=== PATIENT | female | born 1975 | race African-American/Black ===

== ENCOUNTER 2017-01-29 06:42 | Day surgery (SDC) | payer BC ==
[~2017-01-29] VITALS: Ht 165.1 cm; Wt 112.3 kg
[2017-01-29] VITALS (7 sets, daily range): BP systolic 119–182; BP diastolic 56–102; PULSE 62–91; RESP 16–20; TEMP 96.8–98.8; O2SAT 98–99
[~2017-01-29 06:42] MED LIST: ACET325S8 PO; FOLI1 PO; LISI-360 PO; MAXZ PO; ZITH250T PO
[2017-01-29] MEDS ORDERED: FOLI400T PO (07:14)
[2017-01-29] MEDS ORDERED: LISI-515 PO (07:14)
[2017-01-29] MEDS ORDERED: FLUT50SP EACH NARE (07:14)
[2017-01-29] MEDS ORDERED: TRIA37.5 PO (07:14)
[2017-01-29] MEDS ORDERED: LIFI1DRO EACH EYE (07:14)
[2017-01-29] MEDS ORDERED: LIDOCAINE HCL 1% 20 ML VIAL ONE (07:57)
[2017-01-29] MEDS ORDERED: SODIUM CHLOR 0.9% 1000 ML IV SCH (08:00)
[2017-01-29] MEDS ORDERED: fentaNYL CITRATE 250 MCG/5 ML AMP ONE (08:19)
[2017-01-29] MEDS ORDERED: MIDAZOLAM HCL 5 MG/5 ML VIAL ONE (08:19)
--- NOTE | 2017-01-29 09:04 | PD.RAD ---
Post CT Procedure Prog Note Pre Procedure Diagnosis: (1) Nephrotic syndrome (2) Nephrotic range proteinuria Post Procedure Diagnosis: (1) Nephrotic range proteinuria (2) Nephrotic syndrome Procedure Date: Jan 29, 2017 Supervising Radiologist: Sage Sol Anesthesia: Local, Conscious Sedation Plan of Activity Patient to Unit: ROPU Patient Condition: Good Additional Comments: Pt. post left renal biopsy. 2 samples taken with an 18 gauge needle No significant post op hemorrhage See PACS Report for procedural detail/treatment Sage Sol MD Jan 29, 2017 09:04
[2017-01-29 10:30] LABS: AUTOMATED NEUTROPHIL # 5.5 TH/MM3 (1.8-7.7); BASOPHIL # 0.1 TH/MM3 (0-0.2); BASOPHIL % 0.7 % (0.0-2.0); EOSINOPHIL # 0.2 TH/MM3 (0-0.4); HEMATOCRIT 31.9 % (35.0-46.0); HEMO FLAGS DIFF FINAL; LYMPH % 18.1 % (9.0-44.0); LYMPHOCYTE # 1.4 TH/MM3 (1.0-4.8); MEAN CELL VOLUME 80.4 FL (80.0-100.0); MEAN CORPUSCULAR HEMOGLOBIN 25.2 PG (27.0-34.0); MEAN CORPUSCULAR HGB CONC 31.4 % (32.0-36.0); MONO % 5.9 % (0.0-8.0); NEUT % 72.3 % (16.0-70.0); PLATELET COUNT 377 TH/MM3 (150-450); RED BLOOD COUNT 3.97 MIL/MM3 (4.00-5.30); RED CELL DISTRIBUTION WIDTH 16.4 % (11.6-17.2); WHITE BLOOD COUNT 7.7 TH/MM3 (4.0-11.0)
--- NOTE | 2017-01-29 10:45 | RADRPT ---
EXAM DATE/TIME: 01/29/2017 08:35 [facility] COMPARISON: CT SOFT TISSUE NECK W CONTRAST, November 17, 2013, 15:57. INDICATIONS : Nephrotic range proteinuria; Chronic renal failure. SEDATION TIME: 30 minutes BIOPSY SITE: MEDICATION(S): 1.) 1.5 mg midazolam (Versed) IV 2.) 75 mcg fentanyl (Sublimaze) IV DEVICE(S): 1.) 18 gauge Temno core biopsy needle MEDICAL HISTORY : Chronic kidney failure. SURGICAL HISTORY : None. ENCOUNTER: Initial ACUITY: 1 day PAIN SCORE: 0/10 LOCATION: Left kidney A total of two core specimen(s) were obtained and sent to the laboratory for pathologic evaluation. PROCEDURE: 1. CT guided renalleft biopsy. 2. Conscious sedation with continuous EKG and oximetry monitoring. 3. EKG and oximetry remained stable throughout the procedure. Prior to the procedure informed consent was obtained. Any appropriate prior imaging studies were rev iewed. Using automated exposure control and adjustment of the mA and/or kV according to patient size, radiat ion dose was kept as low as reasonably achievable to obtain optimal diagnostic quality images. The site was prepped in a sterile fashion. Full sterile technique was used, including cap, mask, anish rile gloves and gown and a large sterile sheet. Hand hygiene and 2% chlorhexidine and/or betadine/al cohol prep was utilized per protocol for cutaneous antisepsis. The skin and subcutaneous tissues wer e infiltrated with local anesthetic solution. With CT guidance the previously identified target was localized. Biopsy was performed using an 18 gau ge core biopsy needle. The initial biopsy sample was evaluated with a magnifying glass. There are onl y a few glomeruli identified. A second biopsy was performed. Adequate hemostasis was obtained with co mpression at the puncture site. Follow-up CT scan reveals no hemorrhage. The patient tolerated the procedure well and there were no complications. The patient was returned to the Radiology Outpatient Unit in stable condition. CONCLUSION: Uncomplicated CT guided biopsy of the left kidney for renal function. 2 biopsies were performed.. Sage Sol MD on January 29, 2017 at 10:42 Board Certified Radiologist. This report was verified electronically.
[2017-01-29 12:05] LABS: AUTOMATED NEUTROPHIL # 5.6 TH/MM3 (1.8-7.7); BASOPHIL # 0.1 TH/MM3 (0-0.2); BASOPHIL % 0.8 % (0.0-2.0); EOSINOPHIL # 0.2 TH/MM3 (0-0.4); EOSINOPHIL % 2.3 % (0.0-4.0); HEMO FLAGS DIFF FINAL; LYMPH % 19.2 % (9.0-44.0); LYMPHOCYTE # 1.5 TH/MM3 (1.0-4.8); MEAN CELL VOLUME 79.3 FL (80.0-100.0); MEAN CORPUSCULAR HEMOGLOBIN 25.3 PG (27.0-34.0); MEAN CORPUSCULAR HGB CONC 31.9 % (32.0-36.0); MONO % 7.4 % (0.0-8.0); NEUT % 70.3 % (16.0-70.0); PLATELET COUNT 351 TH/MM3 (150-450); RED BLOOD COUNT 3.91 MIL/MM3 (4.00-5.30); RED CELL DISTRIBUTION WIDTH 16.4 % (11.6-17.2)
== END 2017-01-29 15:15 | disposition home or self-care (01) ==
LOC: HRAD 06:42 → HRIP 06:46 → HRAD 15:15
PROVIDERS: ATTEND Internal Medicine Nephrology
DX: N05.8 Unspecified nephritic syndrome with other morphologic changes (principal)
CPT/HCPCS: 50200; 77012; 85025; J2250; J3010; J7030

== ENCOUNTER 2017-04-24 08:06 | Emergency (ER) | payer BC ==
[~2017-04-24] VITALS: Ht 165.1 cm; Wt 117.6 kg
[~2017-04-24 08:06] MED LIST changes: -ACET325S8 PO; +FLUT50SP EACH NARE; -FOLI1 PO; +FOLI400T PO; +LIFI1DRO EACH EYE; -LISI-360 PO; +LISI-515 PO; -MAXZ PO; +TRIA37.5 PO; -ZITH250T PO
[2017-04-24 08:11] VITALS: BP 198/93; PULSE 93; RESP 16; TEMP 98.5; O2SAT 98
--- NOTE | 2017-04-24 08:34 | PD ---
HPI Chief Complaint: Headache Time Seen by Provider: 08:21 Travel History International Travel<30 days: No Contact w/Intl Traveler<30days: No Traveled to known affect area: No History of Present Illness HPI 42 y/o female presents with frontal pressure to her head that is been going on over the past couple days. She states over the past week or so she's been having adjustment of her blood pressure medication. First her document review attorney Dr. Leigh increased her lisinopril from 20-40. She states then last week she followed with her primary who added in 5 mg of Norvasc. She states that she took her blood pressure medicine at 745 shortly prior to arrival but given her pressure was elevated with feeling of head pressure and her head she elected to come here. She denies any chest pain, shortness breath, fever, numbness, weakness or other concurrent complaints. PFSH Past Medical History Anemia: Yes Cancer: No Cardiovascular Problems: Yes (htn on meds) Diabetes: No Diminished Hearing: No Endocrine: No Gastrointestinal Disorders: No Genitourinary: No Hepatitis: No Hiatal Hernia: No Hypertension: Yes Immune Disorder: No Medical other: No Musculoskeletal: No Neurologic: No Psychiatric: No Reproductive: Yes Respiratory: No Integumentary: Yes (GENITAL HERPES) Immunizations Current: No Renal Failure: Yes (lupus related kidney disease) Thyroid Disease: No ?: Not Menopausal: Yes : 2 Para: 1 Miscarriage: 1 Past Surgical History Abdominal Surgery: No AICD: No Cardiac Surgery: No Section: Yes Ear Surgery: No Endocrine Surgery: No Eye Surgery: No Genitourinary Surgery: No Gynecologic Surgery: Yes Joint Replacement: No Oral Surgery: No Pacemaker: No Thoracic Surgery: No Other Surgery: Yes (c section) Social History Alcohol Use: No Tobacco Use: No Substance Use: No Allergies-Medications (Allergen,Severity, Reaction): Coded Allergies: doxycycline (Unverified Allergy, Mild, Rash, 04/24/17) Reported Meds & Prescriptions Reported Meds & Active Scripts Active Reported Calcium 600 with Vitamin D (Calcium Carbonate-Cholecalciferol) 600-400 mg-Unit Tab 1 Tab PO DAILY Furosemide 20 Mg Tab 20 Mg PO -- Vitamin D2 (Ergocalciferol) 2,000 Unit Tab 100,000 Units PO WEEKLY Potassium Chloride ER (Potassium Chloride) 20 Meq Tab 20 Meq PO -- Bactrim DS (Sulfamethoxazole-Trimethoprim) 800-160 Mg Tab 1 Tab PO -- Prednisone 10 Mg Tab 10 Mg PO DAILY Mycophenolate (Mycophenolate Mofetil) 500 Mg Tab 1,500 Mg PO BID Omeprazole 20 Mg Tab 20 Mg PO DAILY Xiidra Opth Drops (Lifitegrast Opth Drops) 5% Drops 1 Drop EACH EYE BID Fluticasone Nasal [place] 50 Mcg/Act Naspr 100 Mcg EACH NARE DAILY 50 mcg/spray Triamterene-Hydrochlorothiazide 37.5-25 Mg Tab 1 Tab PO DAILY Lisinopril 20 Mg Tab 40 Mg PO DAILY Review of Systems Except as stated in HPI: all other systems reviewed are Neg Physical Exam Narrative GENERAL: Well-nourished, well-developed patient. SKIN: Warm and dry. HEAD: Normocephalic and atraumatic. EYES: No injection or drainage. ENT: No nasal drainage noted. NECK: Supple, trachea midline. No meningeal signs CARDIOVASCULAR: Regular rate and rhythm RESPIRATORY: No increased effort. No accessory muscle use. GASTROINTESTINAL: Abdomen soft, non-tender, nondistended. EXTREMITIES: No edema. NEUROLOGICAL: Awake and alert. Motor and sensory grossly within normal limits. Normal speech. Data Data Last Documented VS Vital Signs Date Time Temp Pulse Resp B/P (MAP) Pulse Ox O2 Delivery O2 Flow Rate FiO2 04/24/17 09:44 81 16 165/75 (105) 98 Room Air 04/24/17 08:11 98.5 Orders Orders Complete Blood Count With Diff (04/24/17 08:26) Basic Metabolic Panel (Bmp) (04/24/17 08:26) Act Partial Throm Time (Ptt) (04/24/17 08:26) Prothrombin Time / Inr (Pt) (04/24/17 08:26) Ct Brain W/O Iv Contrast(Rout) (04/24/17 ) Iv Access Insert/Monitor (04/24/17 08:26) Ecg Monitoring (04/24/17 08:26) Oximetry (04/24/17 08:26) Urinalysis - C+S If Indicated (04/24/17 08:26) Chest, Pa & Lat (04/24/17 ) Labs Laboratory Tests Test 04/24/17 08:41 04/24/17 09:01 Urine Collection Type CLEAN CATCH Urine Color YELLOW Urine Turbidity CLEAR Urine pH 5.5 Urine Specific [place] 1.016 Urine Protein 300 OR GREATER mg/dL Urine Glucose (UA) NEG mg/dL Urine Ketones NEG mg/dL Urine Occult Blood SMALL Urine Nitrite NEG Urine Bilirubin NEG Urine Leukocyte Esterase NEG Urine RBC 4-9 /hpf Urine WBC 0-2 /hpf Urine Squamous Epithelial Cells 6-8 /hpf Microscopic Urinalysis Comment CULT NOT INDICATED Urine Collection Time 08:41 White Blood Count 13.7 TH/MM3 Red Blood Count 3.92 MIL/MM3 Hemoglobin 10.0 GM/DL Hematocrit 32.1 % Mean Corpuscular Volume 81.7 FL Mean Corpuscular Hemoglobin 25.6 PG Mean Corpuscular Hemoglobin Concent 31.3 % Red Cell Distribution Width 17.5 % Platelet Count 391 TH/MM3 Mean Platelet Volume 7.4 FL Neutrophils (%) (Auto) 78.1 % Lymphocytes (%) (Auto) 15.1 % Monocytes (%) (Auto) 5.2 % Eosinophils (%) (Auto) 1.3 % Basophils (%) (Auto) 0.3 % Neutrophils # (Auto) 10.7 TH/MM3 Lymphocytes # (Auto) 2.1 TH/MM3 Monocytes # (Auto) 0.7 TH/MM3 Eosinophils # (Auto) 0.2 TH/MM3 Basophils # (Auto) 0.0 TH/MM3 CBC Comment DIFF FINAL Differential Comment Prothrombin Time 10.5 SEC Prothromb Time International Ratio 1.0 RATIO Activated Partial Thromboplast Time 25.4 SEC Blood Urea Nitrogen 23 MG/DL Creatinine 1.20 MG/DL Random Glucose 97 MG/DL Calcium Level 8.4 MG/DL Sodium Level 140 MEQ/L Potassium Level 3.5 MEQ/L Chloride Level 106 MEQ/L Carbon Dioxide Level 27.7 MEQ/L Anion Gap 6 MEQ/L Estimat Glomerular Filtration Rate 60 ML/MIN MDM Medical Decision Making Medical Screen Exam Complete: Yes Emergency Medical Condition: Yes Medical Record Reviewed: Yes (past history confirmed) Interpretation(s) CBC & BMP Diagram 04/24/17 09:01 Calcium Level 8.4 L Last [address] 04/24/17 0000 Signed Impressions: Service Date/Time: Monday, April 24, 2017 08:42 - CONCLUSION: Normal examination. No significant change has occurred. Justin May MD Chest X-Ray 04/24/17 0000 Signed Impressions: Service Date/Time: Monday, April 24, 2017 09:32 - CONCLUSION: No acute disease. Piotr Lu MD Differential Diagnosis Worsening renal failure, tension, migraine, bleed, hypertensive urgency..... Narrative Course Will check blood work, urinalysis, CT scan abdominal pelvis and monitor. Patient took blood pressure medication shortly prior to arrival. We'll recheck and see if she needs further blood pressure control Renal function is at baseline, CT brain no acute, pressure has come down nicely on its own, patient has minimal elevated white count will add on chest x-ray Chest x-ray shows no acute findings,Patient denies any new complaints and states that they are feeling better. Patient happy with care, all questions answered. Patient knows that follow up is incumbent on them and to return to the emergency room immediately if new or worsening symptoms develop. Patient given strict return precautions, vitals reviewed and are normal, agrees to further workup as an outpatient. Diagnosis Primary Impression: Cephalalgia Qualified Codes: R51 - Headache Patient Instructions: General Instructions Additional Instructions: keep blood pressure log, return as needed, follow with primary this week Med/Other Pt SpecificInfo: No Change to Meds Disposition: 01 DISCHARGE HOME Condition: Stable Ashlie De Santiago MD Apr 24, 2017 08:33
[2017-04-24] MEDS ORDERED: POTA-163 PO (08:35)
[2017-04-24] MEDS ORDERED: PRED10 PO (08:35)
[2017-04-24] MEDS ORDERED: MYCO500T PO (08:35)
[2017-04-24] MEDS ORDERED: ERGO2000 PO (08:35)
[2017-04-24] MEDS ORDERED: FOLI400T PO (08:35)
[2017-04-24] MEDS ORDERED: FURO20TA PO (08:35)
[2017-04-24] MEDS ORDERED: OMEP20TA PO (08:35)
[2017-04-24] MEDS ORDERED: CALC1TAB87 PO (08:35)
[2017-04-24] MEDS ORDERED: BACT800T5 PO (08:35)
[2017-04-24 08:44] LABS: BLOOD, URINE SMALL (NEG); GLUCOSE,URINE NEG (NEG); KETONE, URINE NEG (NEG); NITRITE,URINE NEG (NEG); PH, URINE 5.5 (5.0-8.5)
[2017-04-24 08:50] LABS: METHOD OF COLLECTION CLEAN CATCH; URINE COLOR YELLOW (YELLW/STRAW); WBC, URINE 0-2 /hpf (0-5)
[2017-04-24 08:51] LABS: COMMENT (UR) CULT NOT INDICATED; CULTURE IF INDICATED CULT NOT INDICATED
--- NOTE | 2017-04-24 08:52 | RADRPT ---
EXAM DATE/TIME: 04/24/2017 08:42 [facility] COMPARISON: CT BRAIN W/O CONTRAST, October 14, 2009, 22:07. INDICATIONS : Headache and hypertension. RADIATION DOSE: 59.22 CTDIvol (mGy) MEDICAL HISTORY : Hypertension. SURGICAL HISTORY : section. ENCOUNTER: Initial ACUITY: 1 day PAIN SCALE: 5/10 LOCATION: cranial TECHNIQUE: Multiple contiguous axial images were obtained of the head. Using automated exposure control and adj ustment of the mA and/or kV according to patient size, radiation dose was kept as low as reasonably a chievable to obtain optimal diagnostic quality images. DICOM format image data is available electro nically for review and comparison. FINDINGS: CEREBRUM: The ventricles are normal for age. No evidence of midline shift, mass lesion, hemorrhage or acute in farction. No extra-axial fluid collections are seen. POSTERIOR FOSSA: The cerebellum and brainstem are intact. The 4th ventricle is midline. The cerebellopontine angle i s unremarkable. EXTRACRANIAL: The visualized portion of the orbits is intact. SKULL: The calvaria is intact. No evidence of skull fracture. CONCLUSION: Normal examination. No significant change has occurred. Justin May MD on April 24, 2017 at 8:48 Board Certified Radiologist. This report was verified electronically.
[2017-04-24 09:05] LABS: AUTOMATED NEUTROPHIL # 10.7 TH/MM3 (1.8-7.7); BASOPHIL % 0.3 % (0.0-2.0); EOSINOPHIL # 0.2 TH/MM3 (0-0.4); EOSINOPHIL % 1.3 % (0.0-4.0); HEMATOCRIT 32.1 % (35.0-46.0); LYMPH % 15.1 % (9.0-44.0); LYMPHOCYTE # 2.1 TH/MM3 (1.0-4.8); MEAN CELL VOLUME 81.7 FL (80.0-100.0); MEAN CORPUSCULAR HEMOGLOBIN 25.6 PG (27.0-34.0); MEAN CORPUSCULAR HGB CONC 31.3 % (32.0-36.0); MONO % 5.2 % (0.0-8.0); NEUT % 78.1 % (16.0-70.0); PLATELET COUNT 391 TH/MM3 (150-450); RED BLOOD COUNT 3.92 MIL/MM3 (4.00-5.30); RED CELL DISTRIBUTION WIDTH 17.5 % (11.6-17.2); WHITE BLOOD COUNT 13.7 TH/MM3 (4.0-11.0)
[2017-04-24 09:06] LABS: HEMO FLAGS DIFF FINAL
[2017-04-24 09:14] LABS: POTASSIUM 3.5 MEQ/L (3.5-5.1)
[2017-04-24 09:16] LABS: BICARBONATE 27.7 MEQ/L (21.0-32.0)
[2017-04-24 09:18] LABS: APTT (PATIENT) 25.4 SEC (24.3-30.1); PROTHROMBIN TIME - PATIENT 10.5 SEC (9.8-11.6)
[2017-04-24 09:42] VITALS: O2SAT 98
[2017-04-24 09:44] VITALS: BP 165/75; PULSE 81; RESP 16; O2SAT 98
--- NOTE | 2017-04-24 09:55 | RADRPT ---
EXAM DATE/TIME: 04/24/2017 09:32 [facility] COMPARISON: CHEST SINGLE AP, June 11, 2016, 18:14. INDICATIONS : Headache,high blood pressure, palpatations possibly due to medication changes. MEDICAL HISTORY : Hypertension. Lupus. Lupus related renal disease. Anemia. SURGICAL HISTORY : section. ENCOUNTER: Initial ACUITY: 1 day PAIN SCORE: 0/10 LOCATION: chest FINDINGS: PA and lateral views of the chest demonstrate the lungs to be symmetrically aerated without evidence of mass, infiltrate or effusion. The cardiomediastinal contours are unremarkable. Osseous structure s are intact. CONCLUSION: No acute disease. Piotr Lu MD on April 24, 2017 at 9:53 Board Certified Radiologist. This report was verified electronically.
== END 2017-04-24 10:19 | disposition home or self-care (01) ==
LOC: PHED 08:06
DX: R51 Headache (principal); I10 Essential (primary) hypertension; M32.9 Systemic lupus erythematosus, unspecified
CPT/HCPCS: 70450; 71020; 80048; 81001; 85025; 85610; 85730; 99285

== ENCOUNTER 2017-10-20 17:31 | Emergency (ER) | payer BC ==
[~2017-10-20 17:31] MED LIST changes: +BACT800T5 PO; +CALC1TAB87 PO; +ERGO2000 PO; +FURO20TA PO; +MYCO500T PO; +OMEP20TA93 PO; +POTA-163 PO; +PRED10 PO
[2017-10-20 17:35] VITALS: BP 171/94; PULSE 100; RESP 18; TEMP 101.4; O2SAT 98
[2017-10-20] MEDS ORDERED: AMLO5 PO (17:49)
[2017-10-20 17:51] VITALS: BP 151/61; PULSE 93; RESP 20; TEMP 99.8; O2SAT 97
[2017-10-20] MEDS ORDERED: SODIUM CHLORIDE 0.9% FLUSH 10 ML FLUSH IVF PRN (18:15)
[2017-10-20] MEDS ORDERED: ACETAMINOPHEN 325 MG TAB PO ONE (18:15)
[2017-10-20] MEDS ORDERED: SODIUM CHLOR 0.9% 1000 ML INJ 1,000 ML IV ONE (18:15)
--- NOTE | 2017-10-20 18:27 | RADRPT ---
EXAM DATE/TIME: 10/20/2017 18:10 [facility] COMPARISON: CHEST PA & LAT, April 24, 2017, 9:32. INDICATIONS : Fever, cold, and flu symptoms. MEDICAL HISTORY : Hypertension. Lupus. Lupus related renal disease. Anemia. SURGICAL HISTORY : section. ENCOUNTER: Initial ACUITY: 2 days PAIN SCORE: 0/10 LOCATION: Bilateral chest FINDINGS: PA and lateral views of the chest demonstrate the lungs to be symmetrically aerated without evidence of mass, infiltrate or effusion. The heart size is enlarged but stable.. Osseous structures are int act. CONCLUSION: No acute disease. No significant change has occurred. Russell Hernandez MD on October 20, 2017 at 18:26 Board Certified Radiologist. This report was verified electronically.
[2017-10-20 19:17] LABS: CALCIUM 8.4 MG/DL (8.5-10.1)
[2017-10-20 19:18] LABS: BICARBONATE 29.9 MEQ/L (21.0-32.0)
[2017-10-20 19:21] LABS: AUTOMATED NEUTROPHIL # 7.6 TH/MM3 (1.8-7.7); BASOPHIL % 0.1 % (0.0-2.0); CREATININE 1.1 MG/DL (0.50-1.00); EOSINOPHIL # 0.1 TH/MM3 (0-0.4); HEMATOCRIT 32.3 % (35.0-46.0); HEMOGLOBIN 10.4 GM/DL (11.6-15.3); LYMPH % 8.9 % (9.0-44.0); LYMPHOCYTE # 0.8 TH/MM3 (1.0-4.8); MEAN CELL VOLUME 85.8 FL (80.0-100.0); MEAN CORPUSCULAR HEMOGLOBIN 27.5 PG (27.0-34.0); MEAN CORPUSCULAR HGB CONC 32.1 % (32.0-36.0); MONO % 5.6 % (0.0-8.0); MONOCYTE # 0.5 TH/MM3 (0-0.9); NEUT % 84.4 % (16.0-70.0); PLATELET COUNT 334 TH/MM3 (150-450); RED BLOOD COUNT 3.76 MIL/MM3 (4.00-5.30); RED CELL DISTRIBUTION WIDTH 16.2 % (11.6-17.2)
[2017-10-20 19:34] VITALS: BP 168/78; PULSE 88; RESP 18; TEMP 99.4; O2SAT 98
[2017-10-20] MEDS ORDERED: OSEL75 PO (19:35)
--- NOTE | 2017-10-20 19:35 | PD ---
HPI . Flulike symptoms Chief Complaint: Cold / Flu Symptoms Time Seen by Provider: 17:52 Travel History International Travel<30 days: No Contact w/Intl Traveler<30days: No Traveled to known affect area: No History of Present Illness HPI This patient presents with the acute onset of flulike symptoms. Onset was yesterday. Symptoms include sore throat, cough, subjective fevers and chills, myalgias. She did not get a flu shot this year. She has not taken an antipyretic today. 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 She states that she is concerned because of a history of SLE. PFSH Past Medical History Anemia: Yes Arthritis: Yes (RA) Cancer: No Cardiovascular Problems: Yes (htn on meds) Diabetes: No Diminished Hearing: No Endocrine: No Gastrointestinal Disorders: No Genitourinary: No Hepatitis: No Hiatal Hernia: No Hypertension: Yes Immune Disorder: No Medical other: Yes (LUPUS SJORGENS) Musculoskeletal: No Neurologic: No Psychiatric: No Reproductive: Yes Respiratory: No Integumentary: Yes (GENITAL HERPES) Immunizations Current: No Renal Failure: Yes (lupus related kidney disease) Thyroid Disease: No Tetanus Vaccination: > 5 Years Influenza Vaccination: No ?: Not LMP: 2 WEEKS AGO Menopausal: Yes : 2 Para: 1 Miscarriage: 1 Past Surgical History Abdominal Surgery: No AICD: No Cardiac Surgery: No Section: Yes Ear Surgery: No Endocrine Surgery: No Eye Surgery: No Genitourinary Surgery: No Gynecologic Surgery: Yes Joint Replacement: No Oral Surgery: No Pacemaker: No Thoracic Surgery: No Other Surgery: Yes (c section) Social History Alcohol Use: No Tobacco Use: No Substance Use: No Allergies-Medications (Allergen,Severity, Reaction): Coded Allergies: doxycycline (Unverified Allergy, Mild, Rash, 10/20/17) Reported Meds & Prescriptions Reported Meds & Active Scripts Active Reported Norvasc (Amlodipine Besylate) 5 Mg Tab 5 Mg PO DAILY Folic Acid 0.4 Mg Tab 1 Mg PO DAILY Furosemide 20 Mg Tab 20 Mg PO - Vitamin D2 (Ergocalciferol) 2,000 Unit Tab 100,000 Units PO 2 TXS WEEKLY Potassium Chloride ER (Potassium Chloride) 20 Meq Tab 20 Meq PO Bactrim DS (Sulfamethoxazole-Trimethoprim) 800-160 Mg Tab 1 Tab PO -- Prednisone 10 Mg Tab 7.5 Mg PO DAILY Mycophenolate (Mycophenolate Mofetil) 500 Mg Tab 1,500 Mg PO BID Omeprazole 20 Mg Tab 20 Mg PO DAILY Fluticasone Nasal [place] 50 Mcg/Act Naspr 100 Mcg EACH NARE DAILY 50 mcg/spray Triamterene-Hydrochlorothiazide 37.5-25 Mg Tab 1 Tab PO DAILY Lisinopril 20 Mg Tab 40 Mg PO DAILY Review of Systems Except as stated in HPI: all other systems reviewed are Neg General / Constitutional: Positive: Fever, Chills HENT: Positive: Sore Throat Respiratory: Positive: Cough Musculoskeletal: Positive: Myalgias Physical Exam Narrative GENERAL: Awake and alert and in no acute distress. SKIN: Warm and dry. HEAD: Normocephalic/atraumatic. EYES: Pupils are equal. Extraocular movements are intact. ENT: Oropharynx has no erythema, tonsillar enlargement, exudate. NECK: Normal range of motion. Supple with no cervical adenopathy. CARDIOVASCULAR: Regular rate and rhythm. Heart sounds are normal. RESPIRATORY: Nonlabored respirations. Lungs are clear with full air movement throughout. MUSCULOSKELETAL: Atraumatic. NEUROLOGICAL: Nonfocal. PSYCHIATRIC: Appropriate mood and affect. Data Data Last Documented VS Vital Signs Date Time Temp Pulse Resp B/P (MAP) Pulse Ox O2 Delivery O2 Flow Rate FiO2 10/20/17 17:51 99.8 93 20 151/61 (91) 97 Room Air Orders Orders Basic Metabolic Panel (Bmp) (10/20/17 18:03) Complete Blood Count With Diff (10/20/17 18:03) Lactic Acid Sepsis Protocol (10/20/17 18:03) Influenzae A/B Antigen (10/20/17 18:03) Blood Culture (10/20/17 18:03) Chest, Pa & Lat (10/20/17 18:03) Iv Access Insert/Monitor (10/20/17 18:03) Sodium Chloride 0.9% Flush (Ns Flush) (10/20/17 18:15) Acetaminophen (Tylenol) (10/20/17 18:15) Sodium Chlor 0.9% 1000 Ml Inj (Ns 1000 M (10/20/17 18:15) Labs Laboratory Tests Test 10/20/17 18:55 White Blood Count 9.0 TH/MM3 Red Blood Count 3.76 MIL/MM3 Hemoglobin 10.4 GM/DL Hematocrit 32.3 % Mean Corpuscular Volume 85.8 FL Mean Corpuscular Hemoglobin 27.5 PG Mean Corpuscular Hemoglobin Concent 32.1 % Red Cell Distribution Width 16.2 % Platelet Count 334 TH/MM3 Mean Platelet Volume 8.0 FL Neutrophils (%) (Auto) 84.4 % Lymphocytes (%) (Auto) 8.9 % Monocytes (%) (Auto) 5.6 % Eosinophils (%) (Auto) 1.0 % Basophils (%) (Auto) 0.1 % Neutrophils # (Auto) 7.6 TH/MM3 Lymphocytes # (Auto) 0.8 TH/MM3 Monocytes # (Auto) 0.5 TH/MM3 Eosinophils # (Auto) 0.1 TH/MM3 Basophils # (Auto) 0.0 TH/MM3 CBC Comment DIFF FINAL Differential Comment Blood Urea Nitrogen 22 MG/DL Creatinine 1.10 MG/DL Random Glucose 93 MG/DL Calcium Level 8.4 MG/DL Sodium Level 142 MEQ/L Potassium Level 4.3 MEQ/L Chloride Level 107 MEQ/L Carbon Dioxide Level 29.9 MEQ/L Anion Gap 5 MEQ/L Estimat Glomerular Filtration Rate 66 ML/MIN Lactic Acid Level 0.9 mmol/L MDM Medical Decision Making Medical Screen Exam Complete: Yes Emergency Medical Condition: Yes Differential Diagnosis Differential diagnosis of fever includes but is not limited to viral illness, strep throat, otitis media, pneumonia, sepsis, UTI Narrative Course This patient presents with the chief complaint of fever and flulike symptoms. She states that she is on immunosuppressive medications because of SLE. Therefore, she is concerned about her fever. Last Impressions Chest X-Ray 10/20/17 180 Signed Impressions: Service Date/Time: Friday, October 20, 2017 18:10 - CONCLUSION: No acute disease. No significant change has occurred. Russell Hernandez MD The chest x-ray was independently viewed by me. CBC & BMP Diagram 10/20/17 18:55 Calcium Level 8.4 L LA 0.9 Flu +. I will discharge her with a prescription for Tamiflu. Diagnosis Primary Impression: Influenza Patient Instructions: General Instructions, Influenza (DC) Med/Other Pt SpecificInfo: Prescription(s) given Scripts Oseltamivir (Tamiflu) 75 Mg Cap 75 MG PO BID for Mgmt Viral Infection for 5 Days, #10 CAP 0 Refills Prov: Heide Muñoz MD 10/20/17 Disposition: 01 DISCHARGE HOME Condition: Stable Heide Muñoz MD Oct 20, 2017 19:35
[2017-10-20 19:57] VITALS: BP 168/76; PULSE 91; RESP 20; O2SAT 97
== END 2017-10-20 20:13 | disposition home or self-care (01) ==
LOC: PHED 17:31
DX: J09.X2 Influenza due to identified novel influenza A virus with other respiratory manifestations (principal); M32.9 Systemic lupus erythematosus, unspecified; M06.9 Rheumatoid arthritis, unspecified; I10 Essential (primary) hypertension; Z88.8 Allergy status to other drugs, medicaments and biological substances; Z79.899 Other long term (current) drug therapy
CPT/HCPCS: 71046; 80048; 83605; 85025; 87040; 87804; 99284; J7030

== ENCOUNTER 2018-05-22 05:50 | Inpatient (IN) ==
[2018-05-22] MEDS ORDERED: ceFAZolin 2 GM IV; once IV.SIG PRN (06:09)
[2018-05-22] MEDS ORDERED: Metoprolol Tartrate 25 MG Tablet PO ONE (06:12)
[2018-05-22] MEDS ORDERED: Chlorhexidine Gluconate 2% 1 Pack (2 Cloths) TOPICAL ONE (06:12)
[2018-05-22] MEDS ORDERED: HYDROmorphone PF Inj 2 MG/ML Vial ONE (06:46)
[2018-05-22] MEDS ORDERED: Sugammadex Inj 200 MG/2 ML Vial IV.PUSH ONE (06:46)
[2018-05-22] MEDS ORDERED: Sodium Chlor 0.9% Inj 500 ML IV.SIG SCH (07:00)
[2018-05-22] MEDS ORDERED: Lidocaine PF 1% Inj 5 ML Syringe OTHER ONE (08:50)
[2018-05-22] MEDS ORDERED: predniSONE 20 MG Tablet PO SCH (09:00)
[2018-05-22] MEDS ORDERED: HYDROmorphone PF Inj 2 MG/ML Vial IV.PUSH PRN (10:49)
[2018-05-22] MEDS ORDERED: oxyCODONE/Acetaminophen 10/325 Tablet PO PRN (10:49)
--- NOTE | 2018-05-22 11:10 | P.OP ---
- Preoperative Diagnosis (1) Menorrhagia with regular cycle (2) Lupus nephritis - Postoperative Diagnosis (1) Dysmenorrhea (2) Lupus nephritis (3) Uterine fibroid (4) Menorrhagia with regular cycle (5) Severe anemia Date of procedure: 05/31/18 Procedure: Total abdominal hysterectomy left salpingectomy lysis of adhesions Anesthesia: HOLLAND Surgeon: Kai Lam MD Estimated blood loss (mL): 250 Pathology: other (Uterus,cervix, left tube) Operation and Findings: Counts were correct Findings markedly enlarged uterus extending 3 fingerbreadths below the umbilicus , left ovary was normal left fallopian tube was plastered to the pelvic sidewall , right ovary and tube had multiple adhesions and a small 4 x 3 cm hematoma, because of the hematoma I did not want to anymore bleeding and I did not remove the right tube. There was large adhesions of the omentum to the anterior abdominal wall from previous surgery there was adhesions around the left tube and ovary which were taken down there was adhesions around the right ovary and tube. The posterior and anterior cul-de-sacs were normal Complications were none Procedure in detail patient was taken to the operating theater identified by name band and verbally given a general anesthetic and prepped and draped in the usual manner for a total abdominal hysterectomy. A timeout was taken and a Pfannenstiel scar was excised and extended to accomplish removal of this large uterus. The incision was taken down to the fascia. The fascia was taken off the rectus muscles by blunt and sharp dissection. The peritoneum was entered under direct vision and insert the incision was extended with care to avoid the urinary bladder at this point he needed to take down many omental adhesions which took quite a while this was done by sharp and blunt dissection and using the Bovie for small bleeders. Once this had been accomplished the bowels were packed back patient was placed in Trendelenburg and the self-retaining retractor was placed. I could not identify the round ligament on the left but on the right we took the round ligament down with 0 Vicryl on the left side was markedly distorted because of the fibroids we began taking down that broad ligament with Carissa clamps until the level of the internal cervical loss was obtained we repeated this on the right this point we created a bladder flap and pushed the bladder out of harm's way using Catherine clamps at the level of the internal cervical loss we took the uterine vessels with 0 Vicryl. The cardinal ligament was then taken down using James clamps staying very close to the cervix once we had reached the vagina the vagina was incised sharply with a 10 blade. Shiva scissors were used to remove the specimen. The vaginal cuff was then repaired with Butler sutures laterally and [id number] sutures with 0 Vicryl to close the entire cuff. The pelvis was irrigated with a large amount of fluid small bleeders were coagulated with the Bovie and hemostasis was excellent the left ovary was normal but the left tube was plastered to the pelvic sidewall we took this down with the Bovie cauterization and hated in for pathologic diagnosis. The right tube and ovary there was a small 4 x 4 centimeter hematoma which we had watched for over half an hour and was not growing because of this I did not want her to lose her right ovary so I did not attempt to remove that right tube the retaining retractor and the laps were then removed and a count ensued which was correct the rectus muscles were then reapproximated with 0 Vicryl in a running fashion the fascia was repaired with # 1 PDS in a running fashion the subcu was repaired with 3-0 Vicryl in a running fashion and the skin was reapproximated with a 4-0 Monocryl in a subcuticular manner with excellent result the patient tolerated the procedure well she lost 250 cc of blood and started with a hemoglobin of 9.1 I will keep a careful eye on her overnight and check a blood count in the morning she went to the recovery room in good condition
[2018-05-22] MEDS ORDERED: fentaNYL Citrate Inj 100 MCG/2 ML Ampul ONE (11:17)
[2018-05-22] MEDS ORDERED: *Meperidine Inj 25 MG/ML Vial PERIprocedural Use ONLY ONE (11:25)
[2018-05-22] MEDS ORDERED: Furosemide 20 MG Tablet PO SCH (13:00)
[2018-05-22] MEDS ORDERED: TACROLIMUS TOPICAL PRN (13:15)
[2018-05-22] MEDS: HYDROmorphone PF Inj 2 MG/ML Vial IV.PUSH PRN ×3 (14:15→22:41)
[2018-05-22] MEDS: Furosemide 20 MG Tablet PO SCH (18:35)
[2018-05-22] MEDS ORDERED: Zolpidem Tartrate 5 MG Tablet PO PRN (21:00)
[2018-05-22] MEDS: Hydroxychloroquine 200 MG Tablet PO SCH (21:18)
[2018-05-22] MEDS: Lisinopril 20 MG Tablet PO SCH (22:43)
[2018-05-23] MEDS: HYDROmorphone PF Inj 2 MG/ML Vial IV.PUSH PRN ×2 (03:45→09:44)
[2018-05-23 05:54] LABS: Baso % (Auto) 0.2 % (0.0-2.0); Hematocrit 24.2 % (35.0-46.0); Hemoglobin 7.8 gm/dL (11.6-15.3); Lymph # (Auto) 0.8 th/mm3 (1.0-4.8); Lymph % (Auto) 5.6 % (9.0-44.0); Mean Corpuscular Hemoglobin 26.5 pg (27.0-34.0); Mean Corpuscular Volume 82.7 fL (80.0-100.0); Mean Platelet Volume 7.9 fL (7.0-11.0); Mono # (Auto) 0.9 th/mm3 (0.0-0.9); Mono % (Auto) 5.9 % (0.0-8.0); Neut % (Auto) 88.3 % (16.0-70.0); Platelet Count 292 th/mm3 (150-450); Red Blood Count 2.93 mil/mm3 (4.00-5.30); Red Cell Distribution Width 15.7 % (11.6-17.2); White Blood Count 14.8 th/mm3 (4.0-11.0)
[2018-05-23 06:19] LABS: Potassium 4.3 meq/L (3.5-5.1)
--- NOTE | 2018-05-23 07:57 | P.PNOB ---
Assessment and Plan - Postoperative Procedures Operation Date: 05/22/18 08:00 Actual Procedures Side Surgeon p TOTAL ABDOMINAL HYSTERECTOMY, LEFT SALPINGECTOMY Kai Lam MD Postoperative day: 1 (POD #1 SEVERE ANEMIA START FE) Postoperative status: doing well (POD #1) Postoperative plan: routine post-op care - Time Spent With Patient Total time spent is greater than 50% in coordination of care (as documented) at patient's floor/unit and/or counseling patient: <Kai Lam - Last Filed: 05/23/18 07:59> (1) Lupus nephritis Status: Acute Assessment and plan: CREATINE ELEVATED, ON PREDNISONE X 1 WEEK, CREATINE ORDERED FOR TOMORROW (2) Severe anemia Status: Acute Assessment and plan: CBC IN AM WILL CONSIDER IV IRON INFUSION - Postoperative Procedures Operation Date: 05/22/18 07:56 Actual Procedures Side Surgeon p TOTAL ABDOMINAL HYSTERECTOMY, LEFT SALPINGECTOMY Kai Lam MD - Time Spent With Patient Total time spent is greater than 50% in coordination of care (as documented) at patient's floor/unit and/or counseling patient: <Alejandra Pierre - Last Filed: 05/23/18 15:39> Subjective Subjective: patient reports feeling better, pain is well controlled, patient is tolerating oral intake (No chest pain, no pressure, not dizzy, No flatus. ) <Kai Lam - Last Filed: 05/23/18 07:59> Physical Exam Vital signs: Temp Pulse Resp BP Pulse Ox 98.1 F 61 17 139/71 97 05/23/18 04:13 05/23/18 04:13 05/23/18 04:13 05/23/18 04:13 05/22/18 20:08 - Constitutional no acute distress - Routine Respiratory Exam Present: CTA bilaterally - Routine Cardiovascular Exam Present: RRR - Routine Abdominal Exam Present: soft (surgically tender, hypoactive bowel sounds. ) - Urinary Catheter Management Indwelling Urethral Catheter Cath placed during this visit: yes, but has since been removed by the nurse Removal date: 05/23/18 Removal time: 06:15 <Kai Lam - Last Filed: 05/23/18 07:59> Vital signs: Temp Pulse Resp BP Pulse Ox 98.5 F 68 20 110/67 92 L 05/23/18 12:00 05/23/18 12:00 05/23/18 12:00 05/23/18 12:00 05/23/18 12:00 - Urinary Catheter Management Indwelling Urethral Catheter Cath placed during this visit: no <Alejandra Pierre - Last Filed: 05/23/18 15:39> Results - Labs CBC & Chem 7: 05/23/18 05:20 05/23/18 05:20 Labs: Laboratory Results - last 24 hr 05/22/18 05/23/18 05/23/18 06:25 05:20 05:20 WBC 14.8 H RBC 2.93 L Hgb 7.8 L Hct 24.2 L MCV 82.7 MCH 26.5 L MCHC 32.0 RDW 15.7 Plt Count 292 MPV 7.9 Neut % (Auto) 88.3 H Lymph % (Auto) 5.6 L [place] % (Auto) 5.9 Eos % (Auto) 0.0 Baso % (Auto) 0.2 Neut # (Auto) 13.0 H Lymph # (Auto) 0.8 L [place] # (Auto) 0.9 Eos # (Auto) 0.0 Baso # (Auto) 0.0 WBC Differential . Differential Comment Auto diff final Potassium 4.3 Creatinine 1.17 H Estimated GFR 61 L Blood Type O Positive Blood Type Recheck Required Antibody Screen Negative <Kai Lam - Last Filed: 05/23/18 07:59> - Labs CBC & Chem 7: 05/23/18 05:20 05/23/18 05:20 Labs: Laboratory Results - last 24 hr 05/23/18 05/23/18 05:20 05:20 WBC 14.8 H RBC 2.93 L Hgb 7.8 L Hct 24.2 L MCV 82.7 MCH 26.5 L MCHC 32.0 RDW 15.7 Plt Count 292 MPV 7.9 Neut % (Auto) 88.3 H Lymph % (Auto) 5.6 L [place] % (Auto) 5.9 Eos % (Auto) 0.0 Baso % (Auto) 0.2 Neut # (Auto) 13.0 H Lymph # (Auto) 0.8 L [place] # (Auto) 0.9 Eos # (Auto) 0.0 Baso # (Auto) 0.0 WBC Differential . Differential Comment Auto diff final Potassium 4.3 Creatinine 1.17 H Estimated GFR 61 L <Alejandra Pierre - Last Filed: 05/23/18 15:39>
[2018-05-23] MEDS: Hydroxychloroquine 200 MG Tablet PO SCH ×2 (09:44→20:10)
[2018-05-23] MEDS: Lisinopril 20 MG Tablet PO SCH ×2 (09:44→20:10)
[2018-05-23] MEDS: Triamterene/HCTZ 37.5 MG/25 MG Tablet PO SCH (09:44)
[2018-05-23] MEDS: Pantoprazole Sodium 20 MG DR Tablet PO SCH (09:44)
[2018-05-23] MEDS: dilTIAZem CD 240 MG Capsule PO SCH (09:44)
[2018-05-23] MEDS: predniSONE 10 MG Tablet PO SCH (09:44)
[2018-05-23] MEDS: Docusate Sodium 100 MG Capsule PO PRN (20:10)
[2018-05-24 05:56] LABS: Baso % (Auto) 0.1 % (0.0-2.0); Eos % (Auto) 0.4 % (0.0-4.0); Hematocrit 23.2 % (35.0-46.0); Hemoglobin 7.3 gm/dL (11.6-15.3); Lymph # (Auto) 1.6 th/mm3 (1.0-4.8); Mean Corpuscular HGB Conc 31.5 % (32.0-36.0); Mean Corpuscular Hemoglobin 26.7 pg (27.0-34.0); Mean Corpuscular Volume 84.5 fL (80.0-100.0); Mono # (Auto) 0.9 th/mm3 (0.0-0.9); Mono % (Auto) 6.5 % (0.0-8.0); Neut # (Auto) 11.1 th/mm3 (1.8-7.7); Platelet Count 282 th/mm3 (150-450); Red Blood Count 2.74 mil/mm3 (4.00-5.30); Red Cell Distribution Width 15.8 % (11.6-17.2); White Blood Count 13.7 th/mm3 (4.0-11.0)
[2018-05-24 06:15] LABS: Carbon Dioxide 28.8 meq/L (21.0-32.0); Potassium 4.2 meq/L (3.5-5.1)
[2018-05-24] MEDS: Triamterene/HCTZ 37.5 MG/25 MG Tablet PO SCH (09:06)
[2018-05-24] MEDS: dilTIAZem CD 240 MG Capsule PO SCH (09:06)
[2018-05-24] MEDS: Hydroxychloroquine 200 MG Tablet PO SCH ×2 (09:07→20:31)
[2018-05-24] MEDS: Lisinopril 20 MG Tablet PO SCH ×2 (09:07→20:32)
[2018-05-24] MEDS: Pantoprazole Sodium 20 MG DR Tablet PO SCH (09:07)
[2018-05-24] MEDS: predniSONE 10 MG Tablet PO SCH (09:07)
--- NOTE | 2018-05-24 15:21 | P.PNOB ---
Assessment and Plan (1) Menorrhagia with regular cycle Status: Acute (2) Severe anemia Status: Acute - Postoperative Procedures Operation Date: 05/22/18 07:56 Actual Procedures Side Surgeon p TOTAL ABDOMINAL HYSTERECTOMY, LEFT SALPINGECTOMY Kai Lam MD Postoperative day: 2 Postoperative status: doing well Postoperative plan: routine post-op care, other (her creatinine is increasing. Consultation with Dr Leigh,) - Time Spent With Patient Total time spent is greater than 50% in coordination of care (as documented) at patient's floor/unit and/or counseling patient: Subjective Interval history: Documentation of this patient encounter should include: * Reason for the encounter * Relevant history Subjective: patient reports feeling better, patient has no complaints (No chest pain, pressure, dizziness. Took 2 laps around the floor) Physical Exam Vital signs: Temp Pulse Resp BP Pulse Ox 97.9 F 86 20 132/59 L 96 05/24/18 11:45 05/24/18 11:45 05/24/18 11:45 05/24/18 11:45 05/24/18 11:45 - Constitutional no acute distress - Routine Respiratory Exam Present: CTA bilaterally - Routine Cardiovascular Exam Present: RRR, S1, S2 - Routine Abdominal Exam Present: normoactive bowel sounds, surgical scars - Urinary Catheter Management Indwelling Urethral Catheter Cath placed during this visit: yes, but has since been removed by the nurse Removal date: 05/23/18 Removal time: 06:15 Results - Labs CBC & Chem 7: 05/26/18 05:20 05/26/18 05:20 Labs: Laboratory Results - last 24 hr 05/24/18 05/24/18 04:59 04:59 WBC 13.7 H RBC 2.74 L Hgb 7.3 L Hct 23.2 L MCV 84.5 MCH 26.7 L MCHC 31.5 L RDW 15.8 Plt Count 282 MPV 8.0 Neut % (Auto) 81.0 H Lymph % (Auto) 12.0 [place] % (Auto) 6.5 Eos % (Auto) 0.4 Baso % (Auto) 0.1 Neut # (Auto) 11.1 H Lymph # (Auto) 1.6 [place] # (Auto) 0.9 Eos # (Auto) 0.0 Baso # (Auto) 0.0 WBC Differential . Differential Comment Auto diff final Sodium 141 Potassium 4.2 Chloride 105 Carbon Dioxide 28.8 Anion Gap 7 BUN 27 H Creatinine 1.39 H Estimated GFR 50 L Random Glucose 99 Calcium 8.0 L
[2018-05-24] MEDS: Docusate Sodium 100 MG Capsule PO PRN (17:39)
[2018-05-24] MEDS: Furosemide 20 MG Tablet PO SCH (17:39)
[2018-05-24] MEDS: Ibuprofen 600 MG Tablet PO PRN (17:39)
[2018-05-24] MEDS: Sod Chloride 0.9% Inj 1,000 ML IV.SIG SCH (20:16)
[2018-05-25] MEDS: Ibuprofen 600 MG Tablet PO PRN ×2 (03:50→09:45)
[2018-05-25] MEDS: Sod Chloride 0.9% Inj 1,000 ML IV.SIG SCH ×2 (05:12→15:20)
[2018-05-25 05:14] LABS: Baso % (Auto) 0.3 % (0.0-2.0); Eos # (Auto) 0.1 th/mm3 (0.0-0.4); Eos % (Auto) 0.9 % (0.0-4.0); Hematocrit 23.2 % (35.0-46.0); Hemoglobin 7.3 gm/dL (11.6-15.3); Lymph # (Auto) 1.7 th/mm3 (1.0-4.8); Lymph % (Auto) 11.8 % (9.0-44.0); Mean Corpuscular HGB Conc 31.7 % (32.0-36.0); Mean Corpuscular Hemoglobin 26.7 pg (27.0-34.0); Mean Corpuscular Volume 84.2 fL (80.0-100.0); Mean Platelet Volume 7.8 fL (7.0-11.0); Mono # (Auto) 0.8 th/mm3 (0.0-0.9); Mono % (Auto) 5.4 % (0.0-8.0); Neut # (Auto) 11.6 th/mm3 (1.8-7.7); Neut % (Auto) 81.6 % (16.0-70.0); Platelet Count 274 th/mm3 (150-450); Red Blood Count 2.75 mil/mm3 (4.00-5.30); Red Cell Distribution Width 15.9 % (11.6-17.2); White Blood Count 14.2 th/mm3 (4.0-11.0)
[2018-05-25 05:20] LABS: Alanine Aminotransferase 12 U/L (10-53); Albumin 2.3 g/dL (3.4-5.0); Anion Gap 8 meq/L (5-15); Aspartate Aminotransferase 17 U/L (15-37); Blood Urea Nitrogen 28 mg/dL (7-18); Calcium 7.9 mg/dL (8.5-10.1); Carbon Dioxide 31.1 meq/L (21.0-32.0); Chloride 106 meq/L (98-107); Glomerular Filtration Rate 47 mL/min (>89); Glucose,Random 92 mg/dL (74-106); Sodium 145 meq/L (136-145)
[2018-05-25 05:23] LABS: Alkaline Phosphatase 66 U/L (45-117); Total Protein 6.2 g/dL (6.4-8.2)
[2018-05-25] MEDS: Triamterene/HCTZ 37.5 MG/25 MG Tablet PO SCH (09:44)
[2018-05-25] MEDS: Lisinopril 20 MG Tablet PO SCH (09:44)
[2018-05-25] MEDS: Pantoprazole Sodium 20 MG DR Tablet PO SCH (09:45)
[2018-05-25] MEDS: Docusate Sodium 100 MG Capsule PO PRN (09:45)
[2018-05-25] MEDS: dilTIAZem CD 240 MG Capsule PO SCH (09:45)
[2018-05-25] MEDS: predniSONE 10 MG Tablet PO SCH (09:45)
[2018-05-25] MEDS: Hydroxychloroquine 200 MG Tablet PO SCH ×2 (09:46→20:31)
--- NOTE | 2018-05-25 14:49 | US ---
EXAM DATE: 05/25/2018 12:00 AM EDT AGE/SEX: 43 years / Female INDICATIONS: Increased BUN and creatinine. Status post total abdominal hysterectomy and left salpin gectomy. CLINICAL DATA: This is the patient's initial encounter. Patient reports that signs and symptoms have been present for 3 days and indicates a pain score of 5/10. MEDICAL/SURGICAL HISTORY: Gastroesophageal reflux disease. Lupus nephritis. Hypertension. R heumatoid arthritis. Sjogren syndrome. Sleep apnea. section. COMPARISON: [facility] – [place], [place] NEEDLE BIOPSY RENAL, LEFT, 01/29/2017. . MEASUREMENTS: Right Kidney:__11.7 x 5.0 x 4.7 cm Left Kidney:__12.0 x 5.3 x 5.0 cm FINDINGS: Right Kidney: Normal echotexture and cortical thickness. No mass or hydronephrosis. Left Kidney: Normal echotexture and cortical thickness. No mass or hydronephrosis. Bladder: Within normal limits given the degree of distension. Other: None. CONCLUSION: 1. Negative examination. Electronically signed by: Sage Sol MD 05/25/2018 2:48 PM EDT
[2018-05-25] MEDS: Acetaminophen 325 MG Tablet PO PRN ×2 (15:19→20:32)
[2018-05-26] MEDS: Sod Chloride 0.9% Inj 1,000 ML IV.SIG SCH ×2 (02:00→10:53)
[2018-05-26 05:34] LABS: Baso % (Auto) 0.2 % (0.0-2.0); Eos # (Auto) 0.2 th/mm3 (0.0-0.4); Eos % (Auto) 1.7 % (0.0-4.0); Hematocrit 22.8 % (35.0-46.0); Hemoglobin 7.2 gm/dL (11.6-15.3); Lymph # (Auto) 1.6 th/mm3 (1.0-4.8); Lymph % (Auto) 13.1 % (9.0-44.0); Mean Corpuscular HGB Conc 31.5 % (32.0-36.0); Mean Corpuscular Hemoglobin 26.5 pg (27.0-34.0); Mean Corpuscular Volume 84.2 fL (80.0-100.0); Mono # (Auto) 0.6 th/mm3 (0.0-0.9); Neut # (Auto) 9.6 th/mm3 (1.8-7.7); Platelet Count 292 th/mm3 (150-450); Red Cell Distribution Width 15.7 % (11.6-17.2)
[2018-05-26 06:03] LABS: Alanine Aminotransferase 13 U/L (10-53); Albumin 2.3 g/dL (3.4-5.0); Anion Gap 6 meq/L (5-15); Aspartate Aminotransferase 14 U/L (15-37); Blood Urea Nitrogen 23 mg/dL (7-18); Calcium 7.5 mg/dL (8.5-10.1); Carbon Dioxide 30.5 meq/L (21.0-32.0); Chloride 109 meq/L (98-107); Glomerular Filtration Rate 60 mL/min (>89); Glucose,Random 81 mg/dL (74-106); Sodium 145 meq/L (136-145)
[2018-05-26 06:06] LABS: Alkaline Phosphatase 63 U/L (45-117); Complement C3 115 mg/dL (90-180); Phosphorus 2.5 mg/dL (2.5-4.9)
[2018-05-26 07:45] VITALS: RESP 18
[2018-05-26 09:09] LABS: Bilirubin,Urine Negative (Negative); Clarity,Urine Clear (Clear); Glucose,Urine (UA) Negative (Negative); Leukocyte Esterase,Urine Negative (Negative); Nitrite,Urine Negative (Negative); Specific Gravity,Urine 1.012 (1.002-1.035); Squamous Epithelial Cell,Urine <1 /hpf (0-5)
[2018-05-26] MEDS: Hydroxychloroquine 200 MG Tablet PO SCH (09:13)
[2018-05-26] MEDS: predniSONE 10 MG Tablet PO SCH (09:13)
[2018-05-26] MEDS: dilTIAZem CD 240 MG Capsule PO SCH (09:13)
[2018-05-26] MEDS: Triamterene/HCTZ 37.5 MG/25 MG Tablet PO SCH (09:13)
[2018-05-26] MEDS: Pantoprazole Sodium 20 MG DR Tablet PO SCH (09:14)
[2018-05-26] MEDS: Acetaminophen 325 MG Tablet PO PRN (09:19)
[2018-05-26 12:11] VITALS: BP 137/75; PULSE 75; TEMP 98.5; O2SAT 99
--- NOTE | 2018-05-26 14:27 | P.CONNP ---
History of Present Illness Reason for Consult: Acute renal insufficiency. Primary Care Provider: PROVIDER NON STAFF Family Provider: PROVIDER NON STAFF History of Present Illness: 43-year-old female with a known history of lupus nephritis who responded well to immunosuppressive therapy as an outpatient being managed by rheumatology and also being followed by myself in the office. Patient now status post total hysterectomy and left salpingectomy with a serum creatinine level rising from a baseline range of approximately 1.17 to a level of 1.47 now improved today again to 1.19. Case was discussed with the information systems consultant yesterday and it was noted that the patient was on ibuprofen and I recommended that it be discontinued. I also held the GAEL inhibitor temporarily yesterday. Review of Systems All other systems reviewed negative except as stated in HPI [facility] - History History Provided By: Patient - Medical History Medical History: Medical History (Last Reviewed 05/22/18 @ 06:32 by Alfreda Johnson) GERD (gastroesophageal reflux disease) History of lupus nephritis Hypertension Rheumatoid aortitis Sjoegren syndrome Sleep apnea with use of continuous positive airway pressure (CPAP) Wears glasses - Surgical History Surgical History: Surgical History (Last Reviewed 05/22/18 @ 06:32 by Alfreda Johnson) History of - Tobacco History Second Hand Smoke Exposure: No Smoking Status: Never smoker - Alcohol History How Often Do You Have a Drink Containing Alcohol: Never - Substance Use History Substance History: No History of Abuse - Travel History Recent Travel in the [place] Within the Last 8 Weeks: No Recent Travel Out of the Country Within the Last 8 Weeks: No Medications and Allergies Active Medications: Active Medications Acetaminophen (Tylenol) 650 mg PO Q4H PRN PRN Reason: FEVER >101F Last Admin: 05/26/18 09:19 Dose: 650 mg Diltiazem HCl (Cardizem Cd 24hr) 240 mg PO DAILY [facility] Last Admin: 05/26/18 09:13 Dose: 240 mg Diphenhydramine HCl (Benadryl) 25 mg PO Q6H PRN PRN Reason: ITCHING Docusate Sodium (Colace) 100 mg PO Q12H PRN PRN Reason: CONSTIPATION Last Admin: 05/25/18 09:45 Dose: 100 mg Furosemide (Lasix) 20 mg PO MoWeFr@1800 [facility] Last Admin: 05/24/18 17:39 Dose: 20 mg Hydromorphone HCl (Dilaudid Pf Inj) 1 mg IV.PUSH Q4H PRN PRN Reason: PAIN 6-10;IF UNABLE TO TAKE PO Last Admin: 05/23/18 09:44 Dose: 1 mg Hydroxychloroquine Sulfate (Plaquenil) 200 mg PO BID [facility] Last Admin: 05/26/18 09:13 Dose: 200 mg Sodium Chloride (Ns Inj) 1,000 mls @ 100 mls/hr IV.SIG .Q10H [facility] Last Admin: 05/26/18 10:53 Dose: 100 mls/hr Lisinopril (Prinivil) 20 mg PO BID [facility] Last Admin: 05/25/18 09:44 Dose: 20 mg Ondansetron HCl (Zofran Odt) 4 mg PO Q6H PRN PRN Reason: NAUSEA OR VOMITING Ondansetron HCl (Zofran Inj) 4 mg IV.PUSH Q6H PRN PRN Reason: NAUSEA OR VOMITING Oxycodone/Acetaminophen (Percocet 10/325 Mg) 1 tab PO Q4H PRN PRN Reason: PAIN SCALE 6 TO 10 Oxycodone/Acetaminophen (Percocet 5/325 Mg) 1 tab PO Q4H PRN PRN Reason: PAIN SCALE 3 TO 5 Last Admin: 05/26/18 05:10 Dose: 1 tab Pantoprazole Sodium (Protonix) 20 mg PO DAILY [facility] Last Admin: 05/26/18 09:14 Dose: 20 mg Patient Own Medication[ Tacrolimus Topical] 0 each TOPICAL UNSCH PRN PRN Reason: RASH Potassium Chloride (K-Dur) 20 meq PO TuTh@0900 [facility] Prednisone (Deltasone) 10 mg PO DAILY [facility] Last Admin: 05/26/18 09:13 Dose: 10 mg Promethazine HCl (Phenergan) 25 mg PO Q6H PRN PRN Reason: NAUSEA OR VOMITING Sodium Chloride (Ns Flush) 2 ml IV.FLUSH PRN PRN PRN Reason: FLUSH AFTER USING IV ACCESS Sodium Chloride (Ns Flush) 2 ml IV.FLUSH BID [facility] Last Admin: 05/26/18 09:13 Dose: Not Given Triamterene/HCTZ (Maxzide 37.5 Mg-25 Mg) 1 tab PO DAILY [facility] Last Admin: 05/26/18 09:13 Dose: 1 tab Trimethoprim/Sulfamethoxazole (Bactrim Ds) 1 tab PO MoWeFr@1800 [facility] Last Admin: 05/24/18 17:39 Dose: 1 tab Zolpidem Tartrate (Ambien) 5 mg PO HS PRN PRN Reason: INSOMNIA Allergies Allergy/AdvReac Type Severity Reaction Status Date / Time doxycycline Allergy Mild Rash Verified 05/03/18 13:34 Home Medications Medication Instructions Recorded Confirmed Type ergocalciferol (vitamin D2) 50,000 unit PO 2XWEEK 05/03/18 05/22/18 History [Vitamin D2] folic acid 1 mg PO DAILY 05/03/18 05/22/18 History furosemide 20 mg PO 3XW 05/03/18 05/22/18 History hydroxychloroquine 200 mg PO BID 05/03/18 05/22/18 History lisinopril 20 mg PO BID 05/03/18 05/22/18 History mycophenolate mofetil 1,500 mg PO BID 05/03/18 05/22/18 History omeprazole 1 tab PO DAILY 05/03/18 05/22/18 History potassium chloride 20 meq PO 2XWEEK 05/03/18 05/22/18 History prednisone 2.5 mg PO DAILY 05/03/18 05/22/18 History sulfamethoxazole-trimethoprim 1 tab PO 3XW 05/03/18 05/22/18 History [Bactrim DS] tacrolimus 1 applic TOPICAL DIRECTED PRN 05/03/18 05/22/18 History triamterene-hydrochlorothiazid 1 tab PO DAILY 05/03/18 05/22/18 History diltiazem HCl 240 mg PO DAILY 05/22/18 05/22/18 History Exam Vital signs: Vital Signs 05/25/18 16:27 05/25/18 20:35 05/26/18 00:45 Temperature 98.7 F 98.2 F 97.8 F Pulse Rate 75 68 60 Respiratory Rate 18 18 18 Blood Pressure 127/63 136/66 135/69 Pulse Oximetry 05/26/18 05:09 05/26/18 07:43 05/26/18 12:00 Temperature 97.9 F 98.1 F 98.5 F Pulse Rate 63 62 75 Respiratory Rate 16 18 18 Blood Pressure 144/70 H 137/60 137/75 Pulse Oximetry 99 98 99 Intake & Output 05/25/18 05/26/18 05/26/18 18:59 06:59 18:59 Intake Total 1000 / 1000 1000 / 1000 1000 / 1000 Output Total 300 / 300 Balance 1000 / 1000 1000 / 1000 700 / 700 Intake: IV 1000 / 1000 1000 / 1000 1000 / 1000 NS Inj 1,000 ML @ 100 mls/hr IV 1000 / 1000 1000 / 1000 1000 / 1000 .SIG .Q10H [facility] Rx#:[id number] Output: Urine 300 / 300 Other: # Voids 1 1 # Bowel Movements 1 Narrative: GENERAL: Nelia [place] female lying in bed not in respiratory distress. SKIN: Warm and dry. HEAD: Normocephalic. EYES: No scleral icterus. No injection or drainage. NECK: Supple, trachea midline. No JVD or lymphadenopathy. CARDIOVASCULAR: Regular rate and rhythm without murmurs, gallops, or rubs. RESPIRATORY: Breath sounds equal bilaterally. No accessory muscle use. GASTROINTESTINAL: Abdomen soft, non-tender, nondistended. MUSCULOSKELETAL: No cyanosis, trace edema of the ankles per BACK: No CVA tenderness. Results - Lab Results 05/26/18 05:20 05/26/18 05:20 Most recent lab results Calcium 7.5 mg/dL (8.5-10.1) L 05/26/18 05:20 Phosphorus 2.5 mg/dL (2.5-4.9) 05/26/18 05:20 Assessment and Plan - Assessment (1) Acute on chronic renal insufficiency Code(s): N28.9 - Disorder of kidney and ureter, unspecified; N18.9 - Chronic kidney disease, unspecified Status: Acute Plan: Patient's creatinine level has returned to baseline range. I believe the deterioration was related to administration of the NSAID ibuprofen in the setting of chronic kidney disease. May have been a component of intravascular volume depletion also. Serum complements are in normal range. A urinalysis shows no evidence of microscopic hematuria red cell casts. Her proteinuria is chronic. She was advised to contact my office to have her laboratory studies repeated this coming a.m. I believe that the patient can be discharged from a renal point of view as discussed with her. I held the GAEL inhibitor temporarily but it will be resumed due to improvement in renal function. (2) Hypertension Code(s): I10 - Essential (primary) hypertension Status: Acute Plan: Well controlled. (3) Proteinuria Code(s): R80.9 - Proteinuria, unspecified Status: Acute (4) Lupus nephritis Code(s): M32.14 - Glomerular disease in systemic lupus erythematosus Status: Acute Plan: Continue steroids and Plaquenil as recommended by rheumatology prior to admission.
--- NOTE | 2018-05-26 16:47 | P.PCNOB ---
Pre-Op/Post-Op Diagnoses Operation Date: 05/22/18 07:56 <No data on this case meets the specified criteria> Procedure: Procedures Operation Date: 05/22/18 07:56 Actual Procedures Side Surgeon p TOTAL ABDOMINAL HYSTERECTOMY, LEFT SALPINGECTOMY Kai Lam MD Narrative: Ms. Peri Gibbons is a 43 y/o AA/F w/ a PMH of lupus nephritis and Sjgren's who is s/p total abdominal hysterectomy and L salpingectomy on . She is being d/c on post-op day 4. Her normal baseline Cr of 1.17 increased to 1.39 on post-op day 2 (05/24) and increased further to 1.47 on post-op day 3 ( 05/25). We consulted nephrology (Dr. Neftali Leigh) and he advised we discontinue her ibuprofen. Following this, her Cr decreased down to 1.19 on post-op day 4 (). She currently denies CP, SOB, or pain at site of incision. She reports no pain w/ ambulation. She is urinating normally and has passed flatus. On exam, patient appears well and is very pleasant. Incision site is healing well w/ no erythema, tenderness, or discharge. No lower extremity edema. Breath sounds are normal. There is a high-flow murmur present. 43 y/o AA F POD#4 s/p total abdominal hysterectomy and L salpingectomy. Pain is well-controlled. Stable for discharge today.
--- NOTE | 2018-05-26 20:25 | MD ---
cc: Thi Lam MD DATE OF DISCHARGE: 05/26/2018 HOSPITAL COURSE: Ms. Gibbons is a 43-year-old woman who came in with menorrhagia, dysmenorrhea, uterine fibroids and severe anemia. Prior to the surgery, tried to load her up with iron, sent her to a toe stripper; we could not get her blood count up. She had a huge uterus and needed a total abdominal hysterectomy due to the large fibroids. We took her to the operating room on 05/22/2018, and she had a total abdominal hysterectomy and a left salpingectomy with lysis of adhesions. Because she was severely anemic when we started, with a blood count in the 8 range, postoperatively her blood count went down to 7.8, then 7.3 and was stable. Interestingly, in her postoperative period, her creatinine went from 1.1 to 1.7 to 1.39. Finally it went up to 1.47, and I called her logging truck driver. Because she had a history of lupus nephritis, Dr. Leigh came and saw the patient, told me to stop the Motrin because he thought that was the main reason. She had no signs or symptoms of ligation of the ureter. We stopped the Motrin and her creatinine began to normalize. By postop day 4, she was ready to go home. She was severely anemic; however, she had no signs or symptoms of severe anemia. She had no chest pain, shortness of breath, dizziness, and was ambulating and moving her bowels well. DISCHARGE DISPOSITION: She will be sent home on a regular diet and the usual restrictions for a total abdominal hysterectomy. MD ANNELIESE Arriaga/esperanza , 03:26 PM , 03:33 PM
[2018-05-27 16:07] LABS: Anti-Nuclear Antibody Screen Pos (Neg)
[2018-05-29 17:59] LABS: Anti-Nuclear Antibody Pattern Speckled
== END 2018-05-26 16:19 | disposition home or self-care (01) ==
LOC: HSDC 05:50 → EDSTATUS 08:00 → HSDI 10:49 → H1EA 12:13
PROVIDERS: ADMIT Obstetrics & Gynecology; ATTEND Obstetrics & Gynecology